=== PATIENT | male | born 2000 | race Caucasian/White ===

== ENCOUNTER 2018-05-03 12:25 | Emergency (ER) | payer BC ==
[2018-05-03 12:28] VITALS: BP 131/83; PULSE 93; RESP 16; TEMP 98.3; O2SAT 100
[2018-05-03] MEDS ORDERED: SODIUM CHLOR 0.9% 1000 ML INJ 1,000 ML IV ONE (13:00)
[2018-05-03] MEDS ORDERED: ONDANSETRON ODT 4 MG TAB PO ONE (13:00)
[2018-05-03 13:11] LABS: AUTOMATED NEUTROPHIL # 11.5 TH/MM3 (1.8-7.7); BASOPHIL % 0.2 % (0.0-2.0); EOSINOPHIL % 0.1 % (0.0-4.0); HEMATOCRIT 45.8 % (39.0-51.0); HEMOGLOBIN 15.6 GM/DL (13.0-17.0); LYMPH % 5.9 % (9.0-44.0); LYMPHOCYTE # 0.8 TH/MM3 (1.0-4.8); MEAN CELL VOLUME 92.6 FL (80.0-100.0); MEAN CORPUSCULAR HEMOGLOBIN 31.6 PG (27.0-34.0); MEAN CORPUSCULAR HGB CONC 34.1 % (32.0-36.0); MEAN PLATELET VOLUME 7.8 FL (7.0-11.0); MONO % 8.7 % (0.0-8.0); MONOCYTE # 1.2 TH/MM3 (0-0.9); NEUT % 85.1 % (16.0-70.0); PLATELET COUNT 230 TH/MM3 (150-450); RED BLOOD COUNT 4.95 MIL/MM3 (4.50-5.90); RED CELL DISTRIBUTION WIDTH 11.9 % (11.6-17.2); WHITE BLOOD COUNT 13.5 TH/MM3 (4.0-11.0)
[2018-05-03 13:17] LABS: CHLORIDE 103 MEQ/L (98-107); SODIUM (NA) 138 MEQ/L (136-145)
[2018-05-03 13:21] LABS: ALBUMIN 4.3 GM/DL (3.4-5.0); BICARBONATE 27.9 MEQ/L (21.0-32.0); BLOOD UREA NITROGEN 9 MG/DL (7-18); CALCIUM 8.9 MG/DL (8.5-10.1); GLUCOSE,RANDOM 112 MG/DL (74-106)
[2018-05-03 13:24] LABS: ALT (GPT) 17 U/L (9-52); AST (GOT) 13 U/L (15-39); GLOMERULAR FILTRATION RATE 96 ML/MIN (>89)
[2018-05-03 13:26] LABS: TOTAL BILIRUBIN ADULT 1.3 MG/DL (0.2-1.0)
[2018-05-03 13:27] LABS: ALKALINE PHOSPHATASE 70 U/L (45-117)
[2018-05-03] MEDS ORDERED: IOHEXOL 350 MG/ML 10 ML VIAL (for RAD DIAG) IVCONTRAST ONE (13:53)
--- NOTE | 2018-05-03 13:59 | PD ---
HPI Chief Complaint: Abdominal Pain Time Seen by Provider: 12:32 Travel History International Travel<30 days: No Contact w/Intl Traveler<30days: No Traveled to known affect area: No History of Present Illness HPI 17-year-old female presents the ER for evaluation of abdominal pain. Pain is located in the umbilical area, rated 4 out of 10, nothing makes it better or worse, no radiation, patient did not try anything for the pain. Patient states that the had some chicken couple days ago and since then has been having symptoms. Symptoms include nausea vomiting but no diarrhea. Girlfriend at the bedside states that she had similar symptoms but her wrist got better on its own. Patient had his appendix removed couple years ago. No fever chills or night sweats. No chest pain or shortness of breath. PFSH Past Medical History Medical History: Denies Significant Hx ADHD: No Weight (Kg): 3 Cancer: No Cardiovascular Problems: No Diabetes: No Headaches: No Psychiatric: No Migraines: No Seizures: No Thyroid Disease: No Ulcer: No Tetanus Vaccination: Unknown Influenza Vaccination: No Past Surgical History Appendectomy: Yes Section: No Other Surgery: No Social History Alcohol Use: No Tobacco Use: No Substance Use: No (Marijuana) Allergies-Medications (Allergen,Severity, Reaction): Coded Allergies: No Known Allergies (Verified Adverse Reaction, Unknown, 05/03/18) Reported Meds & Prescriptions Reported Meds & Active Scripts Active No Active Prescriptions or Reported Medications Review of Systems Except as stated in HPI: all other systems reviewed are Neg Physical Exam Narrative GENERAL: Alert oriented x3 no acute distress. SKIN: Focused skin assessment warm/dry. HEAD: Atraumatic. Normocephalic. EYES: Pupils equal and round. No scleral icterus. No injection or drainage. ENT: No nasal bleeding or discharge. Mucous membranes pink and moist. NECK: Trachea midline. No JVD. CARDIOVASCULAR: Regular rate and rhythm. No murmur appreciated. RESPIRATORY: No accessory muscle use. Clear to auscultation. Breath sounds equal bilaterally. GASTROINTESTINAL: Abdomen soft, non-tender, nondistended. Hepatic and splenic margins not palpable. MUSCULOSKELETAL: No obvious deformities. No clubbing. No cyanosis. No edema. NEUROLOGICAL: Awake and alert. No obvious cranial nerve deficits. Motor grossly within normal limits. Normal speech. PSYCHIATRIC: Appropriate mood and affect; insight and judgment normal. Data Data Last Documented VS Vital Signs Date Time Temp Pulse Resp B/P (MAP) Pulse Ox O2 Delivery O2 Flow Rate FiO2 05/03/18 12:28 98.3 93 16 131/83 (99) 100 Orders Orders Sodium Chlor 0.9% 1000 Ml Inj (Ns 1000 M (05/03/18 13:00) Ondansetron Odt (Zofran Odt) (05/03/18 13:00) Ct Abd/Pel W Iv Contrast(Rout) (05/03/18 ) Lipase (05/03/18 12:55) Comprehensive Metabolic Panel (05/03/18 12:55) Complete Blood Count With Diff (05/03/18 12:55) Iohexol 350 Inj (Omnipaque 350 Inj) (05/03/18 13:53) Ed Discharge Order (05/03/18 14:32) Labs Laboratory Tests Test 05/03/18 13:05 White Blood Count 13.5 TH/MM3 Red Blood Count 4.95 MIL/MM3 Hemoglobin 15.6 GM/DL Hematocrit 45.8 % Mean Corpuscular Volume 92.6 FL Mean Corpuscular Hemoglobin 31.6 PG Mean Corpuscular Hemoglobin Concent 34.1 % Red Cell Distribution Width 11.9 % Platelet Count 230 TH/MM3 Mean Platelet Volume 7.8 FL Neutrophils (%) (Auto) 85.1 % Lymphocytes (%) (Auto) 5.9 % Monocytes (%) (Auto) 8.7 % Eosinophils (%) (Auto) 0.1 % Basophils (%) (Auto) 0.2 % Neutrophils # (Auto) 11.5 TH/MM3 Lymphocytes # (Auto) 0.8 TH/MM3 Monocytes # (Auto) 1.2 TH/MM3 Eosinophils # (Auto) 0.0 TH/MM3 Basophils # (Auto) 0.0 TH/MM3 CBC Comment DIFF FINAL Differential Comment Blood Urea Nitrogen 9 MG/DL Creatinine 1.00 MG/DL Random Glucose 112 MG/DL Total Protein 8.0 GM/DL Albumin 4.3 GM/DL Calcium Level 8.9 MG/DL Alkaline Phosphatase 70 U/L Aspartate Amino Transf (AST/SGOT) 13 U/L Alanine Aminotransferase (ALT/SGPT) 17 U/L Total Bilirubin 1.3 MG/DL Sodium Level 138 MEQ/L Potassium Level 3.8 MEQ/L Chloride Level 103 MEQ/L Carbon Dioxide Level 27.9 MEQ/L Anion Gap 7 MEQ/L Estimat Glomerular Filtration Rate 96 ML/MIN Lipase 62 U/L [facility] Medical Decision Making Medical Screen Exam Complete: Yes Emergency Medical Condition: Yes Differential Diagnosis Gastroenteritis, gastritis, pancreatitis. Narrative Course 17-year-old male presented here for evaluation of vomiting for last 3 days since his abdominal pain. Physical examination is unremarkable, CAT scan is negative, labs are within normal limits, patient improved with IV fluids and Zofran I believe his symptoms could be due to gastroenteritis and recommended that he follow-up with primary care physician meanwhile if symptoms change without improve he will have to come to the ER for further evaluation. Laboratory Tests Test 05/03/18 13:05 White Blood Count 13.5 TH/MM3 Red Blood Count 4.95 MIL/MM3 Hemoglobin 15.6 GM/DL Hematocrit 45.8 % Mean Corpuscular Volume 92.6 FL Mean Corpuscular Hemoglobin 31.6 PG Mean Corpuscular Hemoglobin Concent 34.1 % Red Cell Distribution Width 11.9 % Platelet Count 230 TH/MM3 Mean Platelet Volume 7.8 FL Neutrophils (%) (Auto) 85.1 % Lymphocytes (%) (Auto) 5.9 % Monocytes (%) (Auto) 8.7 % Eosinophils (%) (Auto) 0.1 % Basophils (%) (Auto) 0.2 % Neutrophils # (Auto) 11.5 TH/MM3 Lymphocytes # (Auto) 0.8 TH/MM3 Monocytes # (Auto) 1.2 TH/MM3 Eosinophils # (Auto) 0.0 TH/MM3 Basophils # (Auto) 0.0 TH/MM3 CBC Comment DIFF FINAL Differential Comment Blood Urea Nitrogen 9 MG/DL Creatinine 1.00 MG/DL Random Glucose 112 MG/DL Total Protein 8.0 GM/DL Albumin 4.3 GM/DL Calcium Level 8.9 MG/DL Alkaline Phosphatase 70 U/L Aspartate Amino Transf (AST/SGOT) 13 U/L Alanine Aminotransferase (ALT/SGPT) 17 U/L Total Bilirubin 1.3 MG/DL Sodium Level 138 MEQ/L Potassium Level 3.8 MEQ/L Chloride Level 103 MEQ/L Carbon Dioxide Level 27.9 MEQ/L Anion Gap 7 MEQ/L Estimat Glomerular Filtration Rate 96 ML/MIN Lipase 62 U/L Last 24 hours Impressions Abdomen/Pelvis CT 05/03/18 0000 Signed Impressions: CONCLUSION: 1. Negative for acute process. I do not see an etiology for patient's right up per abdomen pain. Correlation suggested. Diagnosis Primary Impression: Gastroenteritis Additional Impression: Nausea & vomiting Qualified Codes: R11.2 - Nausea with vomiting, unspecified Additional Instructions: Follow-up with primary care physician and return to your symptoms change or do not improve. Scripts Ondansetron Odt (Zofran Odt) 4 Mg Tab 4 MG SL Q12HR Y for Nausea/Vomiting, #15 TAB 0 Refills Prov: Rip Faith MD 05/03/18 Disposition: 01 DISCHARGE HOME Condition: Stable Rip Faith MD May 03, 2018 13:59
--- NOTE | 2018-05-03 14:04 | RADRPT ---
EXAM DATE: 05/03/2018 2:00 PM EDT AGE/SEX: 17 years / Male INDICATIONS: Right upper abdomen pain for two days. CLINICAL DATA: This is the patient's initial encounter. Patient reports that signs and symptoms have been present for 2 days and indicates a pain score of 7/10. MEDICAL/SURGICAL HISTORY: None. Appendectomy. ORAL CONTRAST: No oral contrast ingested. RADIATION DOSE: 4.61 CTDI (mGy) COMPARISON: No prior exams available for comparison. TECHNIQUE: Multiple contiguous axial images were obtained through the abdomen and pelvis following b olus infusion of 69 ml Omnipaque 350 (iohexol) nonionic water-soluble contrast as a single exam dos e. No oral contrast ingested. Using automated exposure control and adjustment of the mA and/or kV ac cording to patient size, the radiation dose was kept as low as reasonably achievable to obtain optima l diagnostic quality images. FINDINGS: Lower Lungs: The visualized lower lungs are clear. Liver: The liver has a homogeneous density without space-occupying lesion. There is no dilation of th e biliary tree. Spleen: Homogeneous density without enlargement. Pancreas: Unremarkable without mass or calcification. Kidneys: Normal in size and shape. No evidence of mass or hydronephrosis. Adrenal Glands: Unremarkable. Aorta: The aorta and proximal iliac vessels are grossly unremarkable without aneurysmal dilation. Bowel/Mesentery: The bowel loops are grossly unremarkable. The cecum and sigmoid colon have a normal configuration. Abdominal Wall: Intact. Retroperitoneum: No evidence of adenopathy in the retrocrural, para-aortic, or deep pelvic regions. Bladder: Contours are smooth. Reproductive Organs: No abnormal masses or calcifications seen. Inguinal: The inguinal region is unremarkable without evidence of adenopathy. Bony Structures: Unremarkable. CONCLUSION: 1. Negative for acute process. I do not see an etiology for patient's right upper abdomen pain. Jaycob browne suggested. Electronically signed by: Alexis Rascon MD 05/03/2018 2:02 PM EDT
[2018-05-03] MEDS ORDERED: ZOFR4TAB3 SL (14:34)
== END 2018-05-03 14:47 | disposition home or self-care (01) ==
LOC: PHED 12:25
DX: K52.9 Noninfective gastroenteritis and colitis, unspecified (principal); F12.90 Cannabis use, unspecified, uncomplicated
CPT/HCPCS: 74177; 80053; 83690; 85025; 96360; 99284; J7030; Q9967